=== PATIENT | female | born 1935 | race Caucasian/White ===

== ENCOUNTER 2017-03-31 11:41 | Outpatient (CLI) ==
--- NOTE | 2017-03-31 12:18 | DI ---
EXAM: PA and lateral views of the chest HISTORY: Shortness of breath and chronic obstructive pulmonary disease COMPARISON: Chest x-ray 01/27/2014 FINDINGS: The cardiomediastinal silhouette is normal. There is no pneumothorax or pleural effusion. Lungs are hyperinflated with reticular opacities in the lung bases. There is no consolidation, nod ule or mass. The osseous structures demonstrate degenerative disease of the spine. IMPRESSION: 1. No acute consolidation. 2. Chronic obstructive pulmonary disease with interstitial thickening and ground-glass in the lung b ases suggestive of fibrosis.
== END 2017-03-31 11:42 | disposition home or self-care (01) ==
LOC: LAB 11:41
PROVIDERS: ATTEND Internal Medicine
DX: J44.9 Chronic obstructive pulmonary disease, unspecified (principal); R06.02 Shortness of breath

== ENCOUNTER 2017-04-04 09:41 | Outpatient (CLI) ==
[2017-04-04 10:11] LABS: BASOPHILS % (AUTO) 0.1 % (0.0-3.0); EOSINOPHILS % (AUTO) 0.1 % (0.0-7.0); HEMATOCRIT 34.5 % (37.0-47.0); HEMOGLOBIN 10.9 g/dl (12.0-16.0); IMMATURE GRANULOCYTE % (AUTO) 0.4 % (0.0-5.0); LYMPHOCYTES # (AUTO) 0.9 K/uL (0.60-3.4); LYMPHOCYTES % (AUTO) 9.8 (10.0-50.0); MEAN CORPUSCULAR HEMOGLOBIN 26.4 pg (27.0-31.0); MEAN CORPUSCULAR HGB CONC 31.6 (31.8-35.4); MEAN CORPUSCULAR VOLUME 83.5 fl (81.0-99.0); MONOCYTES # (AUTO) 0.4 K/uL (0.4-2.0); MONOCYTES % (AUTO) 4.4 (0-10); NEUTROPHILS # (AUTO) 7.7 K/ul (2.0-6.9); NEUTROPHILS % (AUTO) 85.2; PLATELET COUNT 290 10^3/uL (140-440); RED BLOOD COUNT 4.13 10^6/ul (4.20-5.40); WHITE BLOOD COUNT 9.05 K/ul (4.6-10.2)
[2017-04-04 10:45] LABS: ALBUMIN 2.7 g/dL (3.4-5.0); ALBUMIN/GLOBULIN RATIO 0.57; BILIRUBIN,TOTAL 0.24 mg/dL (0.00-1.20); BUN/CREATININE RATIO 25.64; CALCIUM 9.7 mg/dL (8.2-10.2); CREATININE 0.78 mg/dL (0.60-1.30); TOTAL PROTEIN 7.4 g/dL (5.8-8.1)
== END 2017-04-04 09:42 | disposition home or self-care (01) ==
LOC: LAB 09:41
PROVIDERS: ATTEND Internal Medicine
DX: D64.9 Anemia, unspecified (principal)
CPT/HCPCS: 36415; 80053; 85025

== ENCOUNTER 2017-04-08 08:01 | Outpatient (CLI) ==
--- NOTE | 2017-04-08 09:37 | CT ---
EXAM: CT of the abdomen pelvis with and without contrast History: Anemia and blood loss. Comparison: None available. Technique: Multiplanar CT images through the abdomen pelvis were obtained with and without the admin istration of IV contrast Findings: Coronary calcifications. Emphysema seen within the lower lungs. Nodular infiltrates are s een within the lingula and right middle lobe. No acute osseous abnormalities. Degenerative changes o f the lumbar spine and scoliosis. No renal stones and no hydronephrosis. No peripancreatic inflammation. Adrenal glands are unremarka ble. Atherosclerotic vascular calcifications. No bladder wall thickening. Small calcified uterine fibroid. Colonic diverticulosis. There is mild inflammation seen adjacent to the sigmoid colon with in the pelvis. Short segment wall thickening within the ascending colon. No free air. The appendix is not dilated or inflamed. No ascites. No focal liver or splenic lesions. No discrete gallstones identified by CT. Pancreas is within normal limits. No renal masses. No retroperitoneal hematoma Impression: 1. Colonic diverticulosis and inflammation adjacent to the sigmoid colon could represent diverticuli tis and/or colitis. No abscess. 2. Short segment wall thickening of the ascending colon could be due to incomplete distension or mal ignant mass. Recommend further evaluation with colonoscopy. 3. Nodular infiltrates within the lingula and right middle lobe probably infectious or inflammatory in nature but recommend followup chest CT to assure resolution.
== END 2017-04-08 08:02 | disposition home or self-care (01) ==
LOC: RAD 08:01
PROVIDERS: ATTEND Internal Medicine
DX: D50.0 Iron deficiency anemia secondary to blood loss (chronic) (principal)

== ENCOUNTER 2017-09-19 10:28 | Outpatient (CLI) ==
--- NOTE | 2017-09-19 12:52 | CT ---
EXAM: CT Abdomen without contrast. CT Pelvis without contrast. HISTORY: Weight loss. COMPARISON: 04/08/2017. TECHNIQUE: Multiple axial images of the abdomen and pelvis were obtained without intravenous contras t. Images were reformatted in the sagittal and coronal plane. FINDINGS: Please note that evaluation of the abdominal and pelvic structures is limited due to lack of intravenous contrast. Emphysematous changes noted in the lung bases. Degenerative changes present. The spine. No osteoly tic or osteoblastic lesions identified. The liver, gallbladder, pancreas, spleen, adrenal glands, and kidneys are without acute abnormality. Benign enlargement both adrenal glands noted. Irregular wall thickening of the cecum/proximal ascending colon noted with adjacent edema and small r ight lower quadrant mesenteric lymph nodes. There is no evidence for bowel obstruction. No free air identified. Colonic diverticulosis noted. Uterus demonstrates normal contour although contains coa rse calcifications. Urinary bladder is unremarkable. No free fluid or free air identified. Extensi ve atherosclerotic calcifications are present. IMPRESSION: Extensive irregular wall thickening of the cecum/proximal ascending colon, highly suspicious for obdulia gnancy.
--- NOTE | 2017-09-19 12:59 | CT ---
EXAM: CT chest without contrast HISTORY: Smoking with 35 pounds weight loss and prior cardiac surgery COMPARISON: Chest x-ray 03/31/2017 and multiple priors TECHNIQUE: Serial axial images of the chest were obtained from the lung apices to the upper abdomen without contrast. These were viewed in multiple planes. FINDINGS: The thyroid is normal. There is moderate atherosclerotic disease and changes of previous CABG. Pulmonary arteries are upper limit of normal. The heart is normal without pericardial effusio n. There are sternotomy changes. A single large precarinal lymph node is noted measuring 1.1 cm in short axis. There are no pathologically enlarged mediastinal lymph nodes otherwise identified. There is no pneumothorax or effusion. There is moderate emphysematous disease. There is mild bronch iectasis and airway thickening in the lower lobes. There is a 0.2 cm ground-glass nodule in the righ t lower lobe on image 37. There is a 0.4 cm ground-glass nodule in the right lower lobe on image 38. Additional 0.3 cm of ground-glass is noted in the right lower lobe on image 40. Calcified granulom as noted in the right lower lobe. There is minimal fibrosis in the right middle lobe inferiorly. Th ere is a 0.3 cm pleural-based nodule in the lingula. There is mild bibasilar atelectasis. Osseous structures demonstrate degenerative disease. The soft tissues in the upper abdomen are lucia r evaluated on same day CT. IMPRESSION: 1. Moderate emphysematous disease. There is mild bronchiectasis and airway thickening in the lower lobes and may represent a component of inflammation. 2. Multiple ground-glass nodules. Given the appearance of mass in the colon, follow-up and 3 months is recommended. 3. Moderate atherosclerotic disease with changes of prior CABG and a single precarinal lymph node baldev suring 1.1 cm.
== END 2017-09-19 10:29 | disposition home or self-care (01) ==
LOC: RAD 10:28
PROVIDERS: ATTEND Internal Medicine
DX: R10.9 Unspecified abdominal pain (principal); R63.4 Abnormal weight loss; Z87.891 Personal history of nicotine dependence